=== PATIENT | female | born 1985 | race African-American/Black ===

== ENCOUNTER 2018-12-29 16:11 | Outpatient (CLI) | payer MEDICARE, MEDICAID ==
--- NOTE | 2018-12-29 17:14 | ULT ---
ULTRASOUND OB COMPLETE STANDARD 12/29/18 HISTORY: Anatomy, size and dates. COMPARISON: None. TECHNIQUE: Real time hunt scale, color doppler and spectral analysis of the gravid uterus was performed transabd ominal approach. Single viable intrauterine with average ultrasound age of 21 week, 4 day. Estimated date of delivery 05/07/19. Estimated is 1 lb, 38th percentile. BIOMETRY: Biparietal diameter 4.86 cm 20 week, 5 day Head circumference 18.91 cm 21 week, 2 day Abdominal circumference 17.52 cm 22 week, 4 day Femur length 3.53 cm 21 week, 2 day ANATOMY: Head, cerebellum, cisterna magnum, lateral ventricles, four chamber heart, stomach, kidneys, cord ins ertion, bladder, cervical, thoracic and lumbar and sacral spines as well as nose, lips, upper extremi ties, lower extremities, three vessel cord are all normal. The placenta is fundal and the posi tion is transverse wit the head to the maternal left. IMPRESSION: Single viable intrauterine with normal anatomy scan. POS: [facility]
== END 2018-12-29 16:12 | disposition home or self-care (01) ==
LOC: BICULT 16:11
PROVIDERS: ATTEND Family Medicine
DX: Z34.82 Encounter for supervision of other normal pregnancy, second trimester (principal); Z3A.21 21 weeks gestation of pregnancy
CPT/HCPCS: 76805

== ENCOUNTER 2019-03-21 17:13 | Day surgery (SDC) | payer MEDICARE, MEDICAID ==
[2019-03-21 18:09] VITALS: BMI 25.9
[2019-03-21] MEDS ORDERED: Lactated Ringer's 1,000 ML IV SCH (18:30)
--- NOTE | 2019-03-21 18:36 | PDOC.LDHP ---
Labor and Delivery H&P Chief complaint: contractions HPI: 33 y/o at 34w1d, patient of Dr. Brown, presents with cramping since the 06 of March. She has continued to experience this and decided to come in for evaluation. Denies VB, LOF, or decreased FM. ROS neg for HEENT, cv, pulm, gi, gu, neuro, psych, skin, musculoskeletal or constitutional symptoms other than mentioned above. OB History Details: 2 prior term SVDs Current complications: none Past Medical History: Asthma Depression Current medications: pre- vitamins Previous surgical history: other (breast lumpectomy (benign), bilateral bunionectomy) Allergies/Adverse Reactions: Allergies Allergy/AdvReac Type Severity Reaction Status Date / Time amoxicillin Allergy Hives Verified 03/21/19 18:00 Social history: none - Physical Exam Vital signs reviewed and normal: yes General: NAD, resting Lungs: nonlabored breathing Abdomen: gravid Extremeties: no edema FHT: category 1 (120s, mod variability, + accels, no decels) [place] contractions every: 3-5 mins - Vaginal Exam cm dilated: 0 (unchanged after 5 hours) Effacement: 0% Station: -3 - Assessment 33 y/o at 34w1d with no e/o PTL. Received IV fluids and no cervical change management manager 5 hours of observation. status reassuring with reactive NST. - Plan -: D/c home with precautions. Dr. Brown would like to see her tomorrow. Advised to increase water intake.
== END 2019-03-21 23:15 | disposition home or self-care (01) ==
LOC: L&D/OP 17:13
PROVIDERS: ATTEND Family Medicine
DX: O47.03 False labor before 37 completed weeks of gestation, third trimester (principal); O99.513 Diseases of the respiratory system complicating pregnancy, third trimester; J45.909 Unspecified asthma, uncomplicated; O99.343 Other mental disorders complicating pregnancy, third trimester; F32.9 Major depressive disorder, single episode, unspecified; Z3A.34 34 weeks gestation of pregnancy; Z88.0 Allergy status to penicillin
CPT/HCPCS: 96360; 96361; 99283

== ENCOUNTER 2019-04-27 05:30 | Inpatient (IN) | payer MEDICARE, MEDICAID ==
[2019-04-27] MEDS ORDERED: Ondansetron PF 4 MG/2 ML Vial IVP PRN ×3 (06:39→13:12)
[2019-04-27] MEDS ORDERED: NS w/ Oxytocin 10 units 500 ML IV SCH ×2 (06:39)
[2019-04-27] MEDS ORDERED: hydrALAZINE 20 MG/ML VIAL SLOW IVP PRN ×2 (06:39→13:12)
[2019-04-27] MEDS ORDERED: Carboprost 250 MCG/ML AMP IM PRN (06:39)
[2019-04-27] MEDS ORDERED: Misoprostol 200 MCG TAB PR PRN (06:39)
[2019-04-27] MEDS ORDERED: Lidocaine 1% (PF) 30 ML VIAL SC PRN (06:39)
[2019-04-27] MEDS ORDERED: Promethazine HCl 25 MG/ML VIAL IM PRN ×3 (06:39→13:12)
[2019-04-27] MEDS ORDERED: Methylergonovine 0.2 MG/ML VIAL IM PRN (06:39)
[2019-04-27] MEDS ORDERED: HYDROcodone/Acetaminophen 5/325 mg Tablet PO PRN ×3 (06:39→13:12)
[2019-04-27] MEDS ORDERED: NS / Oxytocin 40 units/1000ml 1,000 ML IV PRN (06:39)
[2019-04-27] MEDS ORDERED: Ibuprofen 800 MG TAB PO PRN (06:39)
[2019-04-27] MEDS ORDERED: Lactated Ringer's 1,000 ML IV SCH (06:39)
[2019-04-27] MEDS ORDERED: Butorphanol Tartrate 1 MG/ML VIAL SLOW IVP PRN (06:39)
[2019-04-27] MEDS ORDERED: Diphenoxylate HCl/Atropine Tablet PO PRN (06:39)
[2019-04-27 06:51] VITALS: BMI 27.4
[2019-04-27 07:36] LABS: Hemoglobin 12.8 g/dL (12.0-16.0); Mean Corpuscular Volume 94.2 fL (78.0-98.0); Mean Platelet Volume 9.2 fL (7.4-10.4); Platelet Count 127 thou/uL (130-400); RBC Distribution Width 11.8 % (11.5-14.5); Red Blood Cell (RBC) Count 4.01 mill/uL (4.20-5.40); White Blood Cell (WBC) Count 5.4 thou/uL (4.8-10.8)
[2019-04-27] MEDS ORDERED: Fentanyl 4 mcg/Bup 0.1% Cadd 100 ML ONE (08:07)
[2019-04-27 08:16] LABS: HBSAg Index 0.26 S/CO (0-0.99); Hep B Surf Ag Non-Reactive S/CO (NonReactive); Syphilis Antibody Nonreactive (Nonreactive); Syphilis Antibody Index 0.02 S/CO (<1.00 Non-Reactive)
[2019-04-27] MEDS ORDERED: Naloxone HCl 0.4 mg/ml Vial IVP PRN ×2 (08:37)
[2019-04-27] MEDS ORDERED: diphenhydrAMINE 50 MG/ML VIAL IVP PRN (08:37)
[2019-04-27] MEDS ORDERED: ePHEDrine/0.9% NaCl/PF SYRINGE 50 mg/10 ml SLOW IVP PRN (08:37)
[2019-04-27] MEDS ORDERED: Lactated Ringer's 500 ML IV PRN (08:37)
[2019-04-27] MEDS ORDERED: Acetaminophen 325 MG TAB PO PRN (08:37)
[2019-04-27] MEDS ORDERED: Fentanyl 4 mcg/Bupivacaine 0.1% Cassette 100 ML EPIDURAL SCH (08:45)
[2019-04-27] MEDS ORDERED: Communication Order-Pharmacy FS SCH (08:45)
[2019-04-27] MEDS ORDERED: Lidocaine 1% (PF) 30 ML VIAL ONE (11:34)
[2019-04-27] MEDS ORDERED: diphenhydrAMINE 25 MG CAP PO PRN (13:12)
[2019-04-27] MEDS ORDERED: Benzocaine-Menthol 82.5 ML CAN TOP PRN (13:12)
[2019-04-27] MEDS ORDERED: NS / Oxytocin 40 units/1000ml 1,000 ML IV SCH (13:12)
[2019-04-27] MEDS ORDERED: Bisacodyl 10 MG SUPP PR PRN (13:12)
[2019-04-27] MEDS ORDERED: Milk Of Magnesia 30 ML UDCUP PO PRN (13:12)
[2019-04-27] MEDS: Ferrous Sulfate 325 MG TAB PO SCH (19:29)
[2019-04-27] MEDS: Ibuprofen 800 MG TAB PO SCH ×2 (21:55→22:04)
[2019-04-27] MEDS: Docusate Calcium (SURFAK) 240 MG CAP PO SCH (21:55)
[2019-04-28] MEDS: Ibuprofen 800 MG TAB PO SCH ×2 (05:31→13:27)
[2019-04-28 06:33] LABS: Hemoglobin 12.2 g/dL (12.0-16.0); Mean Corpuscular HGB CONC 34.1 g/dL (32.0-36.0); Mean Corpuscular Hemoglobin 32.3 pg (27.0-31.0); Mean Corpuscular Volume 94.7 fL (78.0-98.0); Mean Platelet Volume 8.9 fL (7.4-10.4); Platelet Count 102 thou/uL (130-400); RBC Distribution Width 11.7 % (11.5-14.5); Red Blood Cell (RBC) Count 3.77 mill/uL (4.20-5.40); White Blood Cell (WBC) Count 7.8 thou/uL (4.8-10.8)
[2019-04-28] MEDS ORDERED: Prenatal Vitamin 1 TAB PO SCH (09:00)
[2019-04-28] MEDS: Ferrous Sulfate 325 MG TAB PO SCH (09:24)
[2019-04-28] MEDS: Docusate Calcium (SURFAK) 240 MG CAP PO SCH (09:24)
[2019-04-28 11:34] VITALS: BP 108/61; TEMP 98.2
[2019-04-28] MEDS ORDERED: Measles/Mumps/Rubella 10 MCG/0.5 ML VIAL SC ONE (15:00)
== END 2019-04-28 14:15 | disposition home or self-care (01) | DRG 807 ==
LOC: L&D 06:19 → 3SW 15:01
PROVIDERS: ADMIT Family Medicine; ATTEND Family Medicine
PROC: 10E0XZZ Delivery of Products of Conception, External Approach (ICD-10-PCS; principal; 2019-04-27)
PROC: 3E033VJ Introduction of Other Hormone into Peripheral Vein, Percutaneous Approach (ICD-10-PCS; 2019-04-27)
DX: O80 Encounter for full-term uncomplicated delivery (principal); Z37.0 Single live birth; Z3A.39 39 weeks gestation of pregnancy
CPT/HCPCS: 36415; 51702; 85027; 86780; 86850; 86900; 86901; 87340; 90707; J2001; J2590

== ENCOUNTER 2020-06-02 10:35 | Outpatient (CLI) | payer MEDICARE, MEDICAID ==
--- NOTE | 2020-06-03 07:02 | ULT ---
ULTRASOUND OBSTETRICAL COMPLETE: DATE: 06/02/2020 HISTORY: 35-year-old female ICD-10: O09.892: Supervision of other high-risk pregnancies, second trimester. "Complete anatomy, size and dates, cervical length" FINDINGS: number: calero lie: Vertex Maternal cervix: 4 cm. Closed. Placenta: Anterior. No previa. Several placental lakes. Largest is 3.2 x 1.4 x 1.9 cm. Amniotic fluid volume: FREDY = 12 cm heart rate: 147 bpm The following anatomy is visualized, with no evidence of anomalies: Head, cerebellum, lateral ventricles, four-chamber heart, stomach, kidneys, cord insertion, bladder, cervical spine, thoracic spine, lumbar spine, sacrum, nose and lips, upper extremities, lower extremities, and three-vessel cord. biometry: Biparietal diameter (BPD): 4.7 cm 20 w 1 d Head circumference (HC): 17.7 cm 20 w 2 d Abdominal circumference (AC): 14.8 cm 20 w 1 d Femur length (FL): 3.2 cm 20 w 0 d Average ultrasound age (AUA): 20 w 1 d Estimated date of delivery (ALAN): 10/19/2020 Estimated weight (EFW): 329 g +/- 38 g IMPRESSION: 1) Live 2nd trimester intrauterine gestation. 2) Estimated gestational age of 20 weeks, 1 days 3) cephalic lie. 4) no anatomic abnormality identified. 5) incidental finding of multiple placental lakes.
== END 2020-06-02 10:36 | disposition home or self-care (01) ==
LOC: BICULT 10:35
PROVIDERS: ATTEND Family Medicine
DX: O09.892 Supervision of other high risk pregnancies, second trimester (principal); Z3A.20 20 weeks gestation of pregnancy
CPT/HCPCS: 76805

== ENCOUNTER 2020-09-10 11:17 | Day surgery (SDC) | payer MEDICARE, MEDICAID ==
[2020-09-10 12:29] LABS: Bacteria/HPF None Seen HPF (None Seen); Bilirubin Negative (Negative); Blood, Urine Negative (Negative); Clarity Clear (Clear); Glucose, Urine (Dipstick) Normal (Negative); Ketone, Urine Negative (Negative); Leukocyte 25 Leu/uL (Negative); Nitrite Negative (Negative); Protein, Urine (Dipstick) Negative (Neg-Trace); RBC/HPF 0-3 HPF (0-3); Specific Gravity, Urine 1.012 (1.002-1.036); Squamous Epithelial None Seen HPF (0-3); Urobilinogen Normal mg/dL (Less than 2); WBC/HPF 0-3 HPF (0-3); pH, Urine 7.5 (5.0-9.0)
[2020-09-10] MEDS ORDERED: hydrALAZINE 20 MG/ML VIAL SLOW IVP PRN (12:32)
[2020-09-10 13:34] VITALS: BMI 27.4
--- NOTE | 2020-09-11 06:56 | PRG ---
DATE OF SERVICE: 09/10/2020 PRIMARY PERIODONTAL ASSISTANT: Meet Brown MD CHIEF COMPLAINT: Abdominal pain. HISTORY OF PRESENT ILLNESS: The patient is a 35-year-old, G4, P3, female, with an intrauterine at 35 weeks and 3 days, presenting with complaints of abdominal pains for the last 2 weeks. She is unable to determine how often they occur, but she says they happen. When they happen, they last about 2 minutes and they have gotten more unbearable in recent days. The patient does report a history of delivery, but she again is unable to report when the baby was born whether the baby required NICU support. The patient reports that she sees Dr. Brown in about a week. She denies fever, cough, headache, chest pain, shortness of breath, nausea, vomiting, diarrhea, constipation, hip problems, knee problems, or muscle weakness. She denies vaginal bleeding, leakage of fluid, or urinary urgency or frequency. PAST MEDICAL HISTORY: 1. Asthma. 2. Depression. PAST SURGICAL HISTORY: 1. She has had a breast biopsy. 2. She has had bunion removal. ALLERGIES: AMOXICILLIN, SHE REPORTS HIVES. CURRENT MEDICATIONS: 1. vitamins. 2. Albuterol p.r.n. SOCIAL HISTORY: Denies drug, alcohol, or tobacco use. OBSTETRIC LABORATORY DATA: Unavailable at the time of dictation. REVIEW OF SYSTEMS: Per HPI. PHYSICAL EXAMINATION: VITAL SIGNS: Blood pressure is 129/70, heart rate of 96, respiratory rate of 18. GENERAL: She appears to be in no acute distress. She is alert, oriented, cooperative, and pleasant to interact with. HEAD: Normocephalic and atraumatic. LUNGS: Clear to auscultation bilaterally. HEART: Regular rate and rhythm. ABDOMEN: Gravid, soft, and nontender. EXTREMITIES: Nontender and nonedematous. GENITOURINARY: Cervical exam is 1, 50 and -2 station per nursing staff. heart tracing shows the fetus with a baseline in the 130s with moderate long-term variability, positive 15 x 15 accelerations, no decelerations. Tocometer showing contractions about every 2 minutes. This does not seem to give the patient a lot of discomfort during our discussion. LABORATORY STUDIES: Urinalysis shows a pH of 7.5, specific gravity of 1.012, negative nitrites, 25 leukocyte esterase, negative white blood cells, negative squamous cells, negative bacteria. VPIII is pending. ASSESSMENT AND PLAN: The patient is a 35-year-old female with an intrauterine at 35 weeks and 3 days, showing no clear signs of labor. Cervix is still very unfavorable. Anticipate discharge home once the VPIII is back. We can discuss temporary pain control with IM morphine and Phenergan if she has a ride to home. Fetus has a category 1 tracing, reactive NST. Job ID: [id number]
== END 2020-09-10 16:00 | disposition home or self-care (01) ==
LOC: L&D/OP 11:17
PROVIDERS: ATTEND Family Medicine
DX: O99.891 Other specified diseases and conditions complicating pregnancy (principal); R10.9 Unspecified abdominal pain; O99.513 Diseases of the respiratory system complicating pregnancy, third trimester; J45.909 Unspecified asthma, uncomplicated; O23.593 Infection of other part of genital tract in pregnancy, third trimester; B96.89 Other specified bacterial agents as the cause of diseases classified elsewhere; O09.213 Supervision of pregnancy with history of pre-term labor, third trimester; Z3A.35 35 weeks gestation of pregnancy; Z88.0 Allergy status to penicillin
CPT/HCPCS: 81001; 87480; 87510; 87660

== ENCOUNTER 2020-09-14 14:33 | Day surgery (SDC) | payer MEDICARE, MEDICAID ==
[2020-09-14 15:14] VITALS: BP 115/80; TEMP 98.8; BMI 26.6
[2020-09-14] MEDS ORDERED: hydrALAZINE 20 MG/ML VIAL SLOW IVP PRN (15:16)
--- NOTE | 2020-09-14 15:34 | PDOC.FPROB ---
FMR OB H&P: HPI - History of Present Illness Chief Complaint: Pelvic pressure Indentification: 35yo at 36.0wks History of Present Illness: 35yo at 36.0wks presents for pelvic pressure. Reports coming in for similar pain on 09/11 and was prescribed an antibiotic. Per chart review pt was BV positive and likely sent home with Flagyl. She is still taking it. Pain was not worse today but reports she was just tired of having it. Pain is intermittent, worse with position changes and walking. Denies fever, chills, n/v. Endorses FM. Denies VB/discharge, LOF. Endorses back pain that is consistent with contractions on the monitor. Primary Care Physician: Dr Brown FMR OB H&P: Current - Care : 4 Para: 3 Gestational age: 36.0 Course/Complications: Denies FMR OB H&P: History - Past Medical History PMH: Asthma- last used inhaler 09/10, depression - OB History OB History: Hx of 3 SVDs - Surgical History Sx History: Bunion surgery, surgery on breast cyst - Social History Social History: Denies tobacco, alcohol, drug use - Family History Family History: Noncontributory FMR OB H&P: Medications - Current Home Medications: Medication Instructions Recorded Confirmed Type Vitamin 1 tablet PO DAILY 03/21/19 09/14/20 History ALButerol Sulfate [Ventolin Neb] 1 mg PO DAILY 09/10/20 09/14/20 History Allergies/Adverse Reactions: Allergies Allergy/AdvReac Type Severity Reaction Status Date / Time amoxicillin Allergy Hives Verified 01/29/20 00:20 FMR OB H&P: ROS - Review of Systems General: denies: fever/chills, fatigue Eyes: denies: vision changes, floaters ENT: denies: nasal congestion, rhinorrhea Respiratory: denies: cough, congestion, shortness of breath Gastrointestinal: reports: cramping. denies: nausea, vomiting, diarrhea Genitourinary (Female): reports: contractions, vaginal pressure. denies: dysuria, hematuria, vaginal discharge, vaginal bleeding Musculoskeletal: denies: pain, swelling Neurologic: denies: weakness, headache Integumentary: denies: rash, lesions FMR OB H&P: Vital Signs - Maternal Vital signs: Vital Signs - First Documented Temp Pulse Resp BP Pulse Ox 98.8 F 85 16 115/80 98 09/14/20 15:08 09/14/20 15:08 09/14/20 15:08 09/14/20 15:08 09/14/20 15:08 - Heart Tones Baseline: 130 Variability: moderate Acceleration: absent Deceleration: absent Category: category 1 [place] contractions every: 3-4min FMR OB H&P: Physical Exam - Physical Exam General: NAD, awake, alert and oriented HEENT: normocephalic and atraumatic, conjunctiva clear Neck: supple, trachea midline Heart: RRR, no murmurs/rubs/gallops, no edema General: CTAB, no respiratory distress Abdomen: soft, gravid, other (Pelvic pain reproducible with lateral displacement of uterus c/w round ligament pain. No rebound or rigidity. No CVA tenderness) Musculoskeletal: normal gait and station, pulses present, no misalignment/asymmetry Neurological: no focal deficit Skin: no rash, good tugor Psychiatric: intact recent and remote memory, good judgement and insight, normal mood and affect - Pelvic Exam Vulva: normal hair distribution, no lesions, no discharge, no blood SVE: 25/h Membranes: Intact FMR OB H&P: A/P Disposition: 35yo at 36.0wks presents for pelvic pain - UA with no signs of infection 09/11. Currently being tx'ed for BV. - CTX every 4-5min, SVE 25/h unchanged from 09/11. Will PO hydrate and recheck in 1 hr. - Pelvic pain most consistent with round ligament pain. Reproducible on exam. Afebrile no rebound or rigidity, no CVA tenderness. Discussion: Date/Time: 09/14/200 This H&P was discussed with Dr. Pierce who agrees with the above documentation and plan. Addendum - Attending - Attending Attestation Date/Time: 09/14/20 [id number] I personally evaluated the patient and discussed the management with Dr. Pierce. I agree with the History, Examination, Assessment and Plan documented above.
--- NOTE | 2020-09-14 16:37 | PDOC.EVN ---
Event Note - Event Note Event Note: Still ivon every 3-5min. Repeat SVE unchanged, 12/01/h. Will give 1L LR. Continue to monitor. Addendum - Attending - Attending Attestation Date/Time: 09/14/20 [id number] I personally evaluated the patient and discussed the management with Dr. quiros. I agree with the History, Examination, Assessment and Plan documented above.
[2020-09-14] MEDS ORDERED: Lactated Ringer's 1,000 ML IV SCH (16:45)
[2020-09-14 17:05] LABS: Bacteria/HPF None Seen HPF (None Seen); Bilirubin Negative (Negative); Blood, Urine Negative (Negative); Clarity Clear (Clear); Glucose, Urine (Dipstick) Normal (Negative); Ketone, Urine 40 mg/dL (Negative); Leukocyte Negative Leu/uL (Negative); Nitrite Negative (Negative); Protein, Urine (Dipstick) Negative (Neg-Trace); RBC/HPF 0-3 HPF (0-3); Specific Gravity, Urine 1.005 (1.002-1.036); Squamous Epithelial 0-3 HPF (0-3); Urobilinogen Normal mg/dL (Less than 2); WBC/HPF 0-3 HPF (0-3); pH, Urine 6.5 (5.0-9.0)
[2020-09-14 17:07] LABS: Urine Culture Reflex No No
--- NOTE | 2020-09-14 17:34 | PDOC.EVN ---
Event Note - Event Note Event Note: UCs spacing out with IV fluid. UA negative, ketones seen, no bacteria. SVE was unchanged at last exam. Plan: DC home with precautions, increase fluid intake at home.
[2020-09-15] MEDS ORDERED: FLU VACC QS2020-21(6MOS UP)/PF 60 MCG/0.5 ML SYRINGE IM ONE (15:30)
== END 2020-09-14 17:40 | disposition home or self-care (01) ==
LOC: L&D/OP 14:33
PROVIDERS: ATTEND Family Medicine
DX: O99.891 Other specified diseases and conditions complicating pregnancy (principal); R10.2 Pelvic and perineal pain; O23.593 Infection of other part of genital tract in pregnancy, third trimester; B96.89 Other specified bacterial agents as the cause of diseases classified elsewhere; O99.513 Diseases of the respiratory system complicating pregnancy, third trimester; J45.909 Unspecified asthma, uncomplicated; Z3A.36 36 weeks gestation of pregnancy; Z79.899 Other long term (current) drug therapy; Z88.0 Allergy status to penicillin
CPT/HCPCS: 51701; 81001; 96360; 99283

== ENCOUNTER 2020-10-05 15:16 | Day surgery (SDC) | payer MEDICARE, MEDICAID ==
[2020-10-05] MEDS ORDERED: hydrALAZINE 20 MG/ML VIAL SLOW IVP PRN (15:29)
--- NOTE | 2020-10-05 15:31 | PDOC.FPROB ---
FMR OB H&P: HPI - History of Present Illness Chief Complaint: abdominal pain/contractions Indentification: 35 yo at 38.0 wga History of Present Illness: Patient reports she has been having abdominal pain for past 10 days or so. However, she started to feel contractions today and could not rest. Called EMS who brought her here. Denies LOF, vaginal bleeding, vaginal discharge. Endorses FM. Checked in clinic and was 1.5 cm last week. Primary Care Physician: Kevin FMR OB H&P: Current - Care : 4 Para: 3003 Gestational age: 38.0 Due date: 10/19/2020 Course/Complications: None - OB Labs Blood type: O RH: positive Antibody Screen: negative HIV: negative RPR: negative HepBsAg: negative Rubella: immune Urine drug screen: negative Gonorrhea: negative Chlamydia: negative Pap Smear: NILM GBS: unknown FMR OB H&P: History - Past Medical History PMH: Asthma - OB History OB History: 3 SVDs, uncomplicated, all at 39 weeks - FUNCTIONAL DIRECTOR History FUNCTIONAL DIRECTOR History: Denies STIs, UTIs - Surgical History Sx History: Breast lumpectomy Bunion removal. - Social History Social History: Denies smoking, drinking, drugs. - Family History Family History: noncontributory FMR OB H&P: Medications - Current Home Medications: Medication Instructions Recorded Confirmed Type Vitamin 1 tablet PO DAILY 03/21/19 09/14/20 History ALButerol Sulfate [Ventolin Neb] 1 mg PO DAILY 09/10/20 09/14/20 History Allergies/Adverse Reactions: Allergies Allergy/AdvReac Type Severity Reaction Status Date / Time amoxicillin Allergy Hives Verified 01/29/20 00:20 FMR OB H&P: ROS - Review of Systems General: denies: fever/chills Eyes: denies: vision changes Cardiovascular: denies: chest pain, edema Respiratory: denies: cough, shortness of breath Gastrointestinal: reports: abdominal pain. denies: nausea, vomiting Genitourinary (Female): reports: contractions, vaginal pressure. denies: dysuria, vaginal discharge, vaginal bleeding Musculoskeletal: denies: pain Neurologic: reports: headache (yesterday, which resolved) Integumentary: denies: rash Hematologic/Lymphatic: denies: prolonged or excessive bleeding Psychological: denies: depression, anxiety FMR OB H&P: Vital Signs - Maternal Vital signs: BP 121/62 HR 90 - Heart Tones Baseline: 135 Variability: moderate Acceleration: present Deceleration: absent Category: category 1 [place] contractions every: 3-4 min FMR OB H&P: Physical Exam - Physical Exam General: NAD, awake, alert and oriented HEENT: normocephalic and atraumatic, no scleral icterus, grossly normal vision, grossly normal hearing Neck: trachea midline Heart: pulses present, no edema General: no respiratory distress, good air movement Abdomen: soft, gravid, bowel sound present Musculoskeletal: FROM in all four extremities Neurological: no focal deficit Skin: no rash, no jaundice Lymphatic: no unusual bruising or bleeding Psychiatric: intact recent and remote memory, normal mood and affect - Pelvic Exam SVE: /-2 Membranes: intact Estimated Weight: 7 lbs FMR OB H&P: A/P - Problem List (1) Uterine contractions Current Visit: Yes Status: Acute Code(s): [id number] - Disposition: observe on L&D. Recheck cervix in 1-2 hours. Discussion: Date/Time: 10/05/20 1529 35 yo at 38.0 wga Contractions - observe on L&D and recheck cervix in1-2 hours - GBS unknown, allergic to amoxicillin - 3 other vaginal deliveries induced at 39 wga This H&P was discussed with Dr. Wright, who agrees with the above documentation and plan. Signature: Jamir Isabel MD PGY2
[2020-10-05 16:09] VITALS: BMI 28.3
--- NOTE | 2020-10-06 05:58 | PRG ---
DATE OF SERVICE: 10/05/2020 TIME OF SERVICE: 1820 hours. PRESENTING COMPLAINT: Contractions at 37 weeks gestation. HISTORY OF PRESENT ILLNESS: Straughter is a 35-year-old 4, para 3, at 37 weeks, ALAN of 10/19. Blood type O positive, antibody negative. Pap negative. Rubella immune. VDRL nonreactive. Hepatitis B, GC, chlamydia negative. Group B strep unknown, who sees Meet Brown at [facility]. She complains of contractions for 2 hours. Denies leakage of fluid. Comes in via ambulance. She reports an active fetus. [employer] MEDIC HISTORY: x3, uncomplicated pregnancies. PAST MEDICAL HISTORY: Significant for asthma. PAST SURGICAL HISTORY: Breast biopsy and bunions. ALLERGIES: DENIES. MEDICATIONS: vitamins. SOCIAL HISTORY: Denies tobacco, alcohol, or IV drug abuse. FAMILY HISTORY: Noncontributory. REVIEW OF SYSTEMS: Noncontributory. PHYSICAL EXAMINATION: GENERAL: Black female, in no acute distress. VITAL SIGNS: Blood pressure 118/72, pulse 85, respirations 18, temperature 98.2. HEENT: Within normal limits. LUNGS: Clear to auscultation bilaterally. HEART: Regular rate and rhythm. ABDOMEN: Soft. Occasional palpable contractions at fundal height 37. FHTs 140s. Vulva without lesions. Vagina, without discharge. Cervix 2, 50, -2, cephalic. [place] via RN exam. The patient was monitored for greater than 1.5 hours. She had occasional contractions every 4 to 7 minutes that were indentable. Category 1 heart rate tracing. Recheck of her cervix after approximately 2 hours was unchanged. IMPRESSION: 37 to 38 weeks gestation with [place] contractions, no evidence of active labor. PLAN: Discharge home. Keep scheduled followup in two days with Dr. Meet Brown at [facility]. ER precautions. Job ID: [id number]
== END 2020-10-05 18:53 | disposition home health service (06) ==
LOC: L&D/OP 15:16
DX: O47.1 False labor at or after 37 completed weeks of gestation (principal); O99.613 Diseases of the digestive system complicating pregnancy, third trimester; J45.909 Unspecified asthma, uncomplicated; Z3A.38 38 weeks gestation of pregnancy; Z88.0 Allergy status to penicillin
CPT/HCPCS: 99283

== ENCOUNTER 2020-10-08 20:25 | Day surgery (SDC) | payer MEDICARE, MEDICAID ==
[2020-10-08 20:55] VITALS: BP 118/64; TEMP 98.7; BMI 27.8
[2020-10-08] MEDS ORDERED: hydrALAZINE 20 MG/ML VIAL SLOW IVP PRN (21:55)
--- NOTE | 2020-10-08 22:18 | PRG ---
DATE OF SERVICE: PRIMARY OB: Dr. Meet Brown. CHIEF COMPLAINT: Vaginal discharge. HISTORY OF PRESENT ILLNESS: The patient is a 35-year-old G4, P3 female, with an intrauterine at 38 weeks and 3 days presenting to Labor and Delivery because of having a mucousy discharge today that she had not seen before. The patient yesterday was seen by Dr. Brown in the office at which time her membranes were swept. She was noted to be 3 cm dilated at that time. The patient had experienced quite a few painful contractions to the day yesterday, but today they have dissipated away. After counseling the family and friends about her mucousy discharge, she came to Labor and Delivery for evaluation. The patient denies fever, cough, headache, chest pain, shortness of breath, nausea, vomiting, diarrhea, constipation, hip problems, knee problems, muscle weakness. She denies any new rashes. She denies vaginal bleeding. She denies urinary urgency or frequency. PAST MEDICAL HISTORY: Asthma, depression. PAST SURGICAL HISTORY: She had bunionectomy and breast lump removal. ALLERGIES: NO KNOWN DRUG ALLERGIES. MEDICATIONS: 1. vitamins. 2. Albuterol. OB LABS: Blood type is O positive. Antibody screen is negative. RPR is nonreactive in the 1st and 3rd trimester. HIV is nonreactive in the 1st and 3rd trimester. Hepatitis B surface antigen is negative. She is rubella immune. GC and Chlamydia are negative. One-hour Glucola is 135. REVIEW OF SYSTEMS: Per HPI. PHYSICAL EXAMINATION: VITAL SIGNS: Blood pressure is 118/64, heart rate of 92, saturating 99% on room air, respiratory rate of 18. GENERAL: She appears to be in no acute distress. She is alert, oriented, cooperative, and pleasant to interact with. HEAD: Normocephalic, atraumatic. LUNGS: Clear to auscultation bilaterally. HEART: Regular rate and rhythm. ABDOMEN: Gravid. Soft, nontender. EXTREMITIES: Nontender, nonedematous. Cervical exam per nursing staff is 3, 50, and -2 station, unchanged from reported exam yesterday. heart tracing shows the fetus with a baseline in the 140s with moderate long-term variability, positive 15 x 15 accelerations, no decelerations. Tocometer showing irritability, not all felt by the patient. ASSESSMENT AND PLAN: The patient is a 35-year-old G4, P3 female, with an intrauterine at 38 weeks and 3 days with a loss of mucus vaginally. The patient has no evidence of labor at this time. No rupture of membranes or other concerns. Fetus has a category 1 tracing and reactive NST. She has an appointment next Tuesday with Dr. Brown that we have encouraged that she keep. Job ID: [id number]
== END 2020-10-08 21:57 | disposition home or self-care (01) ==
LOC: L&D/OP 20:25
PROVIDERS: ATTEND Family Medicine
DX: O99.891 Other specified diseases and conditions complicating pregnancy (principal); N89.8 Other specified noninflammatory disorders of vagina; O99.513 Diseases of the respiratory system complicating pregnancy, third trimester; J45.909 Unspecified asthma, uncomplicated; Z3A.38 38 weeks gestation of pregnancy
CPT/HCPCS: 99282

== ENCOUNTER 2020-10-10 15:39 | Day surgery (SDC) | payer MEDICARE, MEDICAID ==
[2020-10-10 16:41] VITALS: BP 115/69; TEMP 98.8; BMI 27.4
[2020-10-10] MEDS ORDERED: hydrALAZINE 20 MG/ML VIAL SLOW IVP PRN (16:49)
--- NOTE | 2020-10-10 16:54 | PDOC.BPN ---
- Brief Progress Note H&P Dictated Labor OBD at 38 weeks 5 days 4cm on arrival
--- NOTE | 2020-10-10 17:21 | HP ---
TIME OF EVALUATION: Roughly 1640 hours, is now about 1652 hours. LOCATION: Labor and Delivery Triage. Patient of Dr. Brown. CHIEF COMPLAINT: Possible contractions as she was sent from Dr. Brown's office for evaluation of labor. HISTORY OF PRESENT ILLNESS: In brief, this is a 35-year-old, G4, P3, with an EDC of 10/19/2020 putting her at 38 weeks and 5 days with complaint of contractions. Now, she states that she was seen earlier in Dr. Brown's office, who checked her and found her to be about 4 cm, so she was sent for labor observation. In Labor and Delivery here, she has also been checked and she has 4 cm. It is important to note that she was checked in Labor and Delivery about 2 days ago and she was about 3 cm then, and after labor observation, was found to be in labor and was sent home without any issues. She denies leakage of fluid, ruptured membranes. She denies vaginal bleeding and she has good movement. She denies any concerns at this time. REVIEW OF SYSTEMS: Complete review of systems was checked and is otherwise negative unless specified in the HPI. GENERAL: She is in no acute distress, and denies fever, chills, or shortness of breath. RESPIRATORY: No shortness of breath or chest pain. ABDOMEN: No symptoms associated here. GI: No constipation or diarrhea. : No dysuria or frequency. OB: The patient has good movement. PAST OB HISTORY: She has had three prior vaginal births. PAST SURGICAL HISTORY: She has had a bunion surgery in her foot and a previous left lumpectomy on the breast. ALLERGIES: AMOXICILLIN. SOCIAL HISTORY: Negative per the patient. PHYSICAL EXAMINATION: GENERAL: She is in no acute distress and does not appear to be actively laboring. VITAL SIGNS: Checked and they are stable. Blood pressure is 115/69, temperature is 98.8, pulse is 78, saturation is 100%. ABDOMEN: Soft, nontender, and gravid. CERVICAL/PELVIC: Reveals a cervix that is 4 cm dilated, 50% effaced, -2 station and that is by Nenita, who is the nurse, who did the first exam assessment. EXTREMITIES: Lower extremities are without significant edema or abnormalities. On monitors, heart tones are reactive in the 130s to 140s or so. There is great variability and no pathological decelerations. Contraction is about every 3 minutes on tocodynamometer. ASSESSMENT: This is a 35-year-old G4, P3, patient of Dr. Brown, who is at early term at 38 weeks and 5 days, here for latent phase of labor at about 4 cm dilation, which is what she was in the office earlier. She is here for labor observation. PLAN: 1. No acute abnormalities noted. 2. We will watch the patient for at least 2 hours because she is ivon, but she has not made significant change from her previous exam two days ago when she was about 3 to 4 cm then. 3. If there is progress of labor, then we will admit her to Dr. Brown. 4. If she remains about 3 to 4 cm as long as pain is not an issue, we may send her home and she is not quite yet full term at 39 weeks. 5. No acute issues at this time. Job ID: [id number]
--- NOTE | 2020-10-10 18:51 | PDOC.BPN ---
- Brief Progress Note L&D recheck and disposition: I am at bedside. s. Still with some CTX. No LOF. O. Vitals stable. RX exam by ziyad was same at /-2. BOWI, no VB monitors: reactive at 140s, TOCO with CTX every 3 min or so Assessment and plan: As she is and lives in [facility], we will OBS here overnight as she is having regular CTX. I will not give pitocin yet as under 39 weeks and no medical indication at this time. DX: latent labor at 38 weeks, lives remote from [facility]. I have seen her and reviewed POC. I called Dr Brown and addressed POC with him as well. Overnight obs regular diet Dr Brown to reeval in AM
[2020-10-10] MEDS ORDERED: Butorphanol Tartrate 1 MG/ML VIAL IM PRN (18:52)
--- NOTE | 2020-10-11 07:51 | PDOC.BPN ---
- Brief Progress Note OBGYN Follow up: Patient stable last night...rested. She will have a check this AM and final dispo per Dr. Brown.
[2020-10-11] MEDS ORDERED: FLU VACC QS2020-21(6MOS UP)/PF 60 MCG/0.5 ML SYRINGE IM ONE (09:00)
== END 2020-10-11 10:43 | disposition home health service (06) ==
LOC: L&D/OP 15:39
PROVIDERS: ATTEND Family Medicine
DX: O47.1 False labor at or after 37 completed weeks of gestation (principal); Z3A.38 38 weeks gestation of pregnancy; Z88.1 Allergy status to other antibiotic agents

== ENCOUNTER 2020-10-13 09:07 | Inpatient (IN) | payer MEDICARE, MEDICAID ==
[2020-10-13 09:54] VITALS: BMI 28.6
[2020-10-13] MEDS: Lactated Ringer's 1,000 ML IV SCH ×2 (10:14→12:04)
[2020-10-13] MEDS ORDERED: Ibuprofen 800 MG TAB PO PRN (10:33)
[2020-10-13] MEDS ORDERED: HYDROcodone/Acetaminophen 5/325 mg Tablet PO PRN ×3 (10:33→18:01)
[2020-10-13] MEDS ORDERED: Ondansetron PF 4 MG/2 ML Vial IVP PRN ×2 (10:33→18:01)
[2020-10-13] MEDS ORDERED: NS / Oxytocin 40 units/1000ml 1,000 ML IV PRN (10:33)
[2020-10-13] MEDS ORDERED: Promethazine HCl 25 MG/ML VIAL IM PRN ×2 (10:33→18:01)
[2020-10-13] MEDS ORDERED: Misoprostol 200 MCG TAB PR PRN (10:33)
[2020-10-13] MEDS ORDERED: Carboprost 250 MCG/ML AMP IM PRN (10:33)
[2020-10-13] MEDS ORDERED: Lidocaine 1% (PF) 30 ML VIAL SC PRN (10:33)
[2020-10-13] MEDS ORDERED: Methylergonovine 0.2 MG/ML VIAL IM PRN (10:33)
[2020-10-13] MEDS ORDERED: hydrALAZINE 20 MG/ML VIAL SLOW IVP PRN ×2 (10:33→18:01)
[2020-10-13] MEDS ORDERED: Diphenoxylate HCl/Atropine Tablet PO PRN (10:33)
[2020-10-13] MEDS ORDERED: Butorphanol Tartrate 1 MG/ML VIAL SLOW IVP PRN (10:33)
[2020-10-13] MEDS ORDERED: NS w/ Oxytocin 10 units 500 ML IV SCH ×2 (10:45)
[2020-10-13 10:54] LABS: Hemoglobin 12.5 g/dL (12.0-16.0); Mean Corpuscular HGB CONC 34.5 g/dL (32.0-36.0); Mean Corpuscular Hemoglobin 32.3 pg (27.0-31.0); Mean Corpuscular Volume 93.6 fL (78.0-98.0); Mean Platelet Volume 9.3 fL (7.4-10.4); Platelet Count 144 thou/uL (130-400); RBC Distribution Width 11.9 % (11.5-14.5); Red Blood Cell (RBC) Count 3.88 mill/uL (4.20-5.40); White Blood Cell (WBC) Count 6.3 thou/uL (4.8-10.8)
[2020-10-13] MEDS ORDERED: Lidocaine 2% MPF 10 ML AMP (For Epidural Use) ONE (11:32)
[2020-10-13] MEDS ORDERED: Bupivacaine/Epinephrine 0.25% 30 ML VIAL ONE (11:32)
[2020-10-13 11:33] LABS: HBSAg Index 0.15 S/CO (0-0.99); Hep B Surf Ag Non-Reactive S/CO (NonReactive)
[2020-10-13 12:13] LABS: Syphilis Antibody Nonreactive (Nonreactive); Syphilis Antibody Index 0.03 S/CO (<1.00 Non-Reactive)
[2020-10-13] MEDS ORDERED: DISCONTINUE ALL PREVIOUS NARCOTICS FS SCH (13:00)
[2020-10-13] MEDS ORDERED: Bupivacaine 0.5% 20 ML, fentaNYL Citrate/PF 400 MCG in Sodium Chloride 0.9% 72 ML EPIDURAL SCH (13:00)
[2020-10-13] MEDS ORDERED: Fentanyl 100 MCG/2 ML VIAL ONE (13:47)
[2020-10-13] MEDS ORDERED: Bupivacaine 0.5% 10 ML VIAL ONE (13:47)
[2020-10-13] MEDS ORDERED: Lidocaine 1% (PF) 30 ML VIAL ONE (15:50)
[2020-10-13] MEDS ORDERED: diphenhydrAMINE 25 MG CAP PO PRN (18:01)
[2020-10-13] MEDS ORDERED: Milk Of Magnesia 30 ML UDCUP PO PRN (18:01)
[2020-10-13] MEDS ORDERED: Bisacodyl 10 MG SUPP PR PRN (18:01)
[2020-10-13] MEDS ORDERED: NS / Oxytocin 40 units/1000ml 1,000 ML IV SCH (18:01)
[2020-10-13 18:04] LABS: SARS-CoV-2 MS2 Positive; SARS-CoV-2 N Gene Negative; SARS-CoV-2 S Gene Negative; SARS-CoV-2 by NAA Not Detected (NotDetected); SARS-CoV-2 orf1ab Negative
[2020-10-13] MEDS ORDERED: Benzocaine-Menthol 82.5 ML CAN TOP PRN (23:46)
[2020-10-14] MEDS: Ibuprofen 800 MG TAB PO SCH ×3 (00:51→15:36)
[2020-10-14] MEDS: Docusate Calcium (SURFAK) 240 MG CAP PO SCH ×2 (00:52→07:47)
[2020-10-14] MEDS: Ferrous Sulfate 325 MG TAB PO SCH ×2 (08:11→16:19)
[2020-10-14] MEDS ORDERED: Adacel (T-DAP) 0.5 ML SYRINGE IM ONE (09:00)
[2020-10-14] MEDS ORDERED: Prenatal Vitamin 1 TAB PO SCH (09:00)
[2020-10-14 11:37] VITALS: TEMP 98.4
[2020-10-14 15:43] VITALS: BP 117/59
== END 2020-10-14 18:45 | disposition home or self-care (01) | DRG 807 ==
LOC: L&D 09:07 → 3SW 19:57
PROVIDERS: ADMIT Family Medicine; ATTEND Family Medicine
PROC: 10E0XZZ Delivery of Products of Conception, External Approach (ICD-10-PCS; principal; 2020-10-13)
PROC: 0HQ9XZZ Repair Perineum Skin, External Approach (ICD-10-PCS; 2020-10-13)
DX: O70.0 First degree perineal laceration during delivery (principal); Z37.0 Single live birth; Z3A.39 39 weeks gestation of pregnancy; Z20.828 Contact with and (suspected) exposure to other viral communicable diseases
CPT/HCPCS: 36415; 85027; 86780; 86850; 86900; 86901; 87340; 87635; J2001; J2590; J3010; J3490; U0003

== ENCOUNTER 2021-04-12 19:21 | Emergency (ER) | payer MEDICARE, OTHER ==
[2021-04-12 20:13] LABS: #Basophils 0.1 thou/uL (0.0-0.2); #Lymphocytes 0.9 thou/uL (1.20-3.40); #Monocytes 0.3 thou/uL (0.11-0.59); #Neutrophils 3.1 thou/uL (1.40-6.50); %Basophils 1.5 % (0.0-1.0); %Eosinophils 0.1 % (0.0-10.0); %Lymphocytes 21.5 % (21.0-51.0); %Monocytes 7.2 % (0.0-10.0); %Neutrophils 69.7 % (42.0-75.0); Hemoglobin 13.2 g/dL (12.0-16.0); Mean Corpuscular HGB CONC 35.6 g/dL (32.0-36.0); Mean Corpuscular Hemoglobin 31.9 pg (27.0-31.0); Mean Corpuscular Volume 89.5 fL (78.0-98.0); Mean Platelet Volume 7.7 fL (7.4-10.4); Platelet Count 168 thou/uL (130-400); RBC Distribution Width 11.6 % (11.5-14.5); Red Blood Cell (RBC) Count 4.13 mill/uL (4.20-5.40); White Blood Cell (WBC) Count 4.4 thou/uL (4.8-10.8)
[2021-04-12 20:32] LABS: ALT (SGPT) 19 U/L (8-55); AST (SGOT) 24 U/L (5-34); Albumin 3.6 g/dL (3.5-5.0); Alkaline Phosphatase 42 U/L (40-110); Anion Gap 15 mmol/L (10-20); BUN (Urea Nitrogen) 7 mg/dL (7.0-18.7); Bilirubin, Total 0.3 mg/dL (0.2-1.2); Calc. Creatinine Clearance 0 mL/min (70-130); Calcium 7.8 mg/dL (7.8-10.44); Carbon Dioxide 19 mmol/L (22-29); Chloride 105 mmol/L (98-107); Globulin 2.9 g/dL (2.4-3.5); Glucose 86 mg/dL (70-105); Potassium 3.4 mmol/L (3.5-5.1); Protein, Total 6.5 g/dL (6.0-8.3); Sodium 136 mmol/L (136-145)
[2021-04-12] MEDS ORDERED: Dexamethasone 10 MG/ML VIAL ONE (21:10)
== END 2021-04-12 22:17 | disposition home or self-care (01) ==
LOC: ERS 19:21
DX: J45.901 Unspecified asthma with (acute) exacerbation (principal); Z86.16 Personal history of COVID-19
CPT/HCPCS: 36415; 71045; 80053; 85025; 87804; 93005; 96374; J1100; J7620; U0003; U0005

== ENCOUNTER 2021-04-14 08:35 | Emergency (ER) | payer MEDICARE, OTHER ==
[2021-04-14] MEDS ORDERED: Iopamidol-370 76% 500 ML 1 ML ONE (08:55)
[2021-04-14 09:49] LABS: #Monocytes 0.2 thou/uL (0.11-0.59); #Neutrophils 4.4 thou/uL (1.40-6.50); %Basophils 0.4 % (0.0-1.0); %Lymphocytes 17.7 % (21.0-51.0); %Monocytes 3.7 % (0.0-10.0); %Neutrophils 78.2 % (42.0-75.0); Hemoglobin 13.5 g/dL (12.0-16.0); Mean Corpuscular HGB CONC 35.4 g/dL (32.0-36.0); Mean Corpuscular Hemoglobin 31.2 pg (27.0-31.0); Mean Platelet Volume 8.1 fL (7.4-10.4); Platelet Count 183 thou/uL (130-400); RBC Distribution Width 11.5 % (11.5-14.5); Red Blood Cell (RBC) Count 4.32 mill/uL (4.20-5.40); White Blood Cell (WBC) Count 5.6 thou/uL (4.8-10.8)
[2021-04-14 10:02] LABS: ALT (SGPT) 40 U/L (8-55); AST (SGOT) 54 U/L (5-34); Albumin 3.5 g/dL (3.5-5.0); Alkaline Phosphatase 38 U/L (40-110); Anion Gap 14 mmol/L (10-20); BUN (Urea Nitrogen) 8 mg/dL (7.0-18.7); Bilirubin, Total 0.3 mg/dL (0.2-1.2); CK (CPK) 174 U/L (29-168); Calc. Creatinine Clearance 0 mL/min (70-130); Calcium 7.8 mg/dL (7.8-10.44); Carbon Dioxide 19 mmol/L (22-29); Chloride 107 mmol/L (98-107); Globulin 2.9 g/dL (2.4-3.5); Glucose 110 mg/dL (70-105); Potassium 3.2 mmol/L (3.5-5.1); Protein, Total 6.4 g/dL (6.0-8.3); Sodium 137 mmol/L (136-145)
[2021-04-14 11:14] LABS: Pregnancy Test - Urine (BHCG) Negative (Negative); Pregu Control Background? CLEAR/WHITE (CLR/WHITE); Pregu Control Bar Appear? YES (CONTROL BAR); Specific Gravity 1.016 (1.002-1.036)
[2021-04-14 11:31] LABS: SARS-CoV-2 NAA Rapid Test DETECTED (NotDetected)
[2021-04-14] MEDS ORDERED: Albuterol 200 PUFF (6.7GM INHALER) ONE (14:07)
== END 2021-04-14 14:54 | disposition home or self-care (01) ==
LOC: ERS 08:35
DX: U07.1 COVID-19 (principal); J45.901 Unspecified asthma with (acute) exacerbation; Z79.899 Other long term (current) drug therapy
CPT/HCPCS: 0240U; 71045; 71275; 80053; 81025; 82550; 83605; 84484; 85025; 85379; 93005; 94640; 99285; 36415; J7620; Q9967

== ENCOUNTER 2021-04-16 09:23 | Inpatient (IN) | payer MEDICARE, MEDICAID ==
[2021-04-16] MEDS ORDERED: Magnesium 2 GM/50 ML BAG (IN WATER) ONE (10:51)
[2021-04-16] MEDS ORDERED: Aspirin Chewable 81 MG TAB ONE (10:51)
[2021-04-16] MEDS ORDERED: Albuterol 200 PUFF (6.7GM INHALER) ONE (10:51)
[2021-04-16 11:08] LABS: #Lymphocytes 0.7 thou/uL (1.20-3.40); #Monocytes 0.2 thou/uL (0.11-0.59); %Basophils 0.3 % (0.0-1.0); %Lymphocytes 8.1 % (21.0-51.0); %Monocytes 2.6 % (0.0-10.0); Mean Corpuscular HGB CONC 34.2 g/dL (32.0-36.0); Mean Corpuscular Hemoglobin 30.4 pg (27.0-31.0); Mean Corpuscular Volume 88.8 fL (78.0-98.0); Mean Platelet Volume 7.9 fL (7.4-10.4); Platelet Count 193 thou/uL (130-400); RBC Distribution Width 11.7 % (11.5-14.5); Red Blood Cell (RBC) Count 4.61 mill/uL (4.20-5.40); White Blood Cell (WBC) Count 8.9 thou/uL (4.8-10.8)
[2021-04-16 11:43] LABS: ALT (SGPT) 41 U/L (8-55); AST (SGOT) 39 U/L (5-34); Albumin 3.7 g/dL (3.5-5.0); Alkaline Phosphatase 37 U/L (40-110); Anion Gap 15 mmol/L (10-20); BUN (Urea Nitrogen) 7 mg/dL (7.0-18.7); Bilirubin, Total 0.5 mg/dL (0.2-1.2); Calc. Creatinine Clearance 0 mL/min (70-130); Calcium 8.5 mg/dL (7.8-10.44); Carbon Dioxide 18 mmol/L (22-29); Chloride 104 mmol/L (98-107); Globulin 3.5 g/dL (2.4-3.5); Glucose 144 mg/dL (70-105); Lipase 38 U/L (8-78); Protein, Total 7.2 g/dL (6.0-8.3); Sodium 134 mmol/L (136-145)
[2021-04-16 12:03] LABS: BHCG - Serum Negative (NEGATIVE); Pregs Control Background? CLEAR/WHITE (CLR/WHITE); Pregs Control Bar Appear? YES (CONTROL BAR)
[2021-04-16 12:20] LABS: Potassium 2.9 mmol/L (3.5-5.1)
[2021-04-16] MEDS ORDERED: Potassium Chloride 20 MEQ TAB ONE (12:56)
[2021-04-16] MEDS ORDERED: Electrolyte Replacement Protocol 1 EACH FS SCH (13:15)
[2021-04-16] MEDS ORDERED: cefTRIAXone\\ROCEPHIN 2 GM VIAL ONE (13:28)
[2021-04-16] MEDS ORDERED: Electrolyte Replacement Protocol FS PRN (13:30)
[2021-04-16] MEDS ORDERED: Acetaminophen 650 MG Suppository PR PRN (13:52)
[2021-04-16] MEDS ORDERED: Loperamide HCl 2 MG CAP PO PRN ×2 (14:00)
[2021-04-16] MEDS ORDERED: Azithromycin 500 MG VIAL ONE (14:06)
[2021-04-16 14:08] LABS: Bilirubin Negative (Negative); Blood, Urine Trace (Negative); Glucose, Urine (Dipstick) Negative (Negative); Ketone, Urine > or equal to 80 mg/dL (Negative); Leukocyte Negative (Negative); Nitrite Negative (Negative); Protein, Urine (Dipstick) 30 mg/dL (Neg-Trace)
[2021-04-16] MEDS ORDERED: Albuterol 200 PUFF (6.7GM INHALER) INH PRN (14:08)
[2021-04-16 14:14] LABS: Clarity Clear (Clear)
[2021-04-16 14:17] LABS: Bacteria/HPF None Seen HPF (None Seen); RBC/HPF 0-3 HPF (0-3); Squamous Epithelial 0-3 HPF (0-3); WBC/HPF 0-3 HPF (0-3)
[2021-04-16] MEDS ORDERED: Ondansetron PF 4 MG/2 ML Vial ONE (14:25)
[2021-04-16 14:27] LABS: Troponin I Less than 0.010 ng/mL (< 0.028)
[2021-04-16 16:21] VITALS: BMI 26.3
[2021-04-16 19:06] LABS: Anion Gap 16 mmol/L (10-20); BUN (Urea Nitrogen) 7 mg/dL (7.0-18.7); Calc. Creatinine Clearance 124 mL/min (70-130); Calcium 8.3 mg/dL (7.8-10.44); Carbon Dioxide 19 mmol/L (22-29); Chloride 105 mmol/L (98-107); Glucose 173 mg/dL (70-105); Potassium 3.7 mmol/L (3.5-5.1); Sodium 136 mmol/L (136-145)
[2021-04-16 19:10] LABS: Troponin I Less than 0.010 ng/mL (< 0.028)
[2021-04-16] MEDS: Guaifenesin DM 100-10/5 ML UDCUP PO PRN (20:46)
[2021-04-17] MEDS: Guaifenesin DM 100-10/5 ML UDCUP PO PRN ×3 (03:19→20:55)
[2021-04-17] MEDS: Acetaminophen 325 MG TAB PO PRN ×2 (04:21→13:32)
[2021-04-17 06:23] LABS: Anion Gap 14 mmol/L (10-20); BUN (Urea Nitrogen) 8 mg/dL (7.0-18.7); Calc. Creatinine Clearance 135 mL/min (70-130); Calcium 8.6 mg/dL (7.8-10.44); Carbon Dioxide 21 mmol/L (22-29); Chloride 106 mmol/L (98-107); Glucose 119 mg/dL (70-105); Sodium 137 mmol/L (136-145)
[2021-04-17 06:34] LABS: Band 10 % (5-11); Hemoglobin 13.1 g/dL (12.0-16.0); Lymphocytes 6 % (21-51); MDiff Complete? YES; Mean Corpuscular Hemoglobin 28.3 pg (27.0-31.0); Mean Corpuscular Volume 88.5 fL (78.0-98.0); Mean Platelet Volume 8.2 fL (7.4-10.4); Monocytes 7 % (0-10); Neutrophil 76 % (42-75); Platelet Count 231 thou/uL (130-400); Platelet Morphology Comment Appears Adequate; RBC Distribution Width 11.8 % (11.5-14.5); RBC Morphology Normal; Reactive Lymphocytes 1 % (0-10); Red Blood Cell (RBC) Count 4.63 mill/uL (4.20-5.40); White Blood Cell (WBC) Count 12.6 thou/uL (4.8-10.8)
[2021-04-17] MEDS: Dexamethasone 4 MG TAB PO SCH (08:31)
[2021-04-17] MEDS: Zinc Sulfate 220 MG CAP PO SCH (08:32)
[2021-04-17] MEDS: Ascorbic Acid 500 mg Chewable Tablet PO SCH (08:32)
[2021-04-17] MEDS: Enoxaparin Sodium 40 MG/0.4 ML SYRINGE SC SCH (08:32)
[2021-04-17] MEDS: Albuterol 200 PUFF (6.7GM INHALER) INH SCH ×2 (17:44→22:34)
[2021-04-18] MEDS: Albuterol 200 PUFF (6.7GM INHALER) INH SCH ×6 (01:41→22:27)
[2021-04-18 06:52] LABS: Anion Gap 14 mmol/L (10-20); BUN (Urea Nitrogen) 9 mg/dL (7.0-18.7); CRP (Inflammatory) 8.81 mg/dL (= or < 0.5); Calc. Creatinine Clearance 137 mL/min (70-130); Calcium 8.9 mg/dL (7.8-10.44); Carbon Dioxide 22 mmol/L (22-29); Chloride 105 mmol/L (98-107); Glucose 96 mg/dL (70-105); Potassium 3.8 mmol/L (3.5-5.1); Sodium 137 mmol/L (136-145)
[2021-04-18] MEDS: Dexamethasone 4 MG TAB PO SCH (09:11)
[2021-04-18] MEDS: Zinc Sulfate 220 MG CAP PO SCH (09:11)
[2021-04-18] MEDS: Enoxaparin Sodium 40 MG/0.4 ML SYRINGE SC SCH ×2 (09:11→21:31)
[2021-04-18] MEDS: Ascorbic Acid 500 mg Chewable Tablet PO SCH (09:11)
[2021-04-18] MEDS: Acetaminophen 325 MG TAB PO PRN (12:09)
[2021-04-18] MEDS: Guaifenesin DM 100-10/5 ML UDCUP PO PRN ×2 (12:10→19:29)
[2021-04-18] MEDS ORDERED: REMDESIVIR 200 MG in Sodium Chloride 0.9% 250 ML 210 ML IV SCH (19:00)
[2021-04-19] MEDS: Acetaminophen 325 MG TAB PO PRN (00:32)
[2021-04-19] MEDS: Albuterol 200 PUFF (6.7GM INHALER) INH SCH ×6 (02:09→22:30)
[2021-04-19] MEDS: Guaifenesin DM 100-10/5 ML UDCUP PO PRN (04:02)
[2021-04-19 06:15] LABS: ALT (SGPT) 39 U/L (8-55); AST (SGOT) 22 U/L (5-34); Albumin 3.5 g/dL (3.5-5.0); Alkaline Phosphatase 36 U/L (40-110); Anion Gap 13 mmol/L (10-20); BUN (Urea Nitrogen) 10 mg/dL (7.0-18.7); Bilirubin, Direct 0.2 mg/dL (0.1-0.3); Bilirubin, Total 0.4 mg/dL (0.2-1.2); Calc. Creatinine Clearance 127 mL/min (70-130); Calcium 8.8 mg/dL (7.8-10.44); Carbon Dioxide 24 mmol/L (22-29); Glucose 99 mg/dL (70-105); Protein, Total 6.9 g/dL (6.0-8.3)
[2021-04-19 06:28] LABS: Chloride 103 mmol/L (98-107); Potassium 3.6 mmol/L (3.5-5.1); Sodium 136 mmol/L (136-145)
[2021-04-19] MEDS: Enoxaparin Sodium 40 MG/0.4 ML SYRINGE SC SCH ×2 (09:20→20:35)
[2021-04-19] MEDS: Dexamethasone 4 MG TAB PO SCH (09:20)
[2021-04-19] MEDS: Ascorbic Acid 500 mg Chewable Tablet PO SCH (09:20)
[2021-04-19] MEDS: Zinc Sulfate 220 MG CAP PO SCH (09:20)
[2021-04-19] MEDS: Aspirin 81 mg Enteric Coated Tablet PO SCH (09:20)
[2021-04-19] MEDS: REMDESIVIR 100 MG in Sodium Chloride 0.9% 250 ML 230 ML IV SCH (17:32)
[2021-04-20] MEDS: Albuterol 200 PUFF (6.7GM INHALER) INH SCH ×6 (02:45→18:59)
[2021-04-20] MEDS: Ascorbic Acid 500 mg Chewable Tablet PO SCH (08:28)
[2021-04-20] MEDS: Aspirin 81 mg Enteric Coated Tablet PO SCH (08:28)
[2021-04-20] MEDS: Enoxaparin Sodium 40 MG/0.4 ML SYRINGE SC SCH ×2 (08:28→18:59)
[2021-04-20] MEDS: Zinc Sulfate 220 MG CAP PO SCH (08:28)
[2021-04-20] MEDS: Dexamethasone 4 MG TAB PO SCH (08:28)
[2021-04-20] MEDS: REMDESIVIR 100 MG in Sodium Chloride 0.9% 250 ML 230 ML IV SCH (18:59)
[2021-04-21] MEDS: Albuterol 200 PUFF (6.7GM INHALER) INH SCH ×6 (04:16→23:00)
[2021-04-21 06:59] LABS: ALT (SGPT) 82 U/L (8-55); AST (SGOT) 44 U/L (5-34); Albumin 3.4 g/dL (3.5-5.0); Alkaline Phosphatase 38 U/L (40-110); Anion Gap 13 mmol/L (10-20); BUN (Urea Nitrogen) 9 mg/dL (7.0-18.7); Bilirubin, Direct 0.2 mg/dL (0.1-0.3); Bilirubin, Total 0.4 mg/dL (0.2-1.2); Calc. Creatinine Clearance 137 mL/min (70-130); Calcium 8.7 mg/dL (7.8-10.44); Carbon Dioxide 24 mmol/L (22-29); Chloride 104 mmol/L (98-107); Glucose 83 mg/dL (70-105); Protein, Total 6.6 g/dL (6.0-8.3); Sodium 137 mmol/L (136-145)
[2021-04-21] MEDS: Dexamethasone 4 MG TAB PO SCH (09:10)
[2021-04-21] MEDS: Aspirin 81 mg Enteric Coated Tablet PO SCH (09:11)
[2021-04-21] MEDS: Ascorbic Acid 500 mg Chewable Tablet PO SCH (09:11)
[2021-04-21] MEDS: Enoxaparin Sodium 40 MG/0.4 ML SYRINGE SC SCH ×2 (09:11→19:44)
[2021-04-21] MEDS: Zinc Sulfate 220 MG CAP PO SCH (09:11)
[2021-04-21] MEDS ORDERED: REMDESIVIR 100 MG in Sodium Chloride 0.9% 250 ML 230 ML IV SCH (18:00)
[2021-04-22] MEDS: Albuterol 200 PUFF (6.7GM INHALER) INH SCH ×4 (00:57→19:12)
[2021-04-22] MEDS: Dexamethasone 4 MG TAB PO SCH (09:10)
[2021-04-22] MEDS: Aspirin 81 mg Enteric Coated Tablet PO SCH (09:10)
[2021-04-22] MEDS: Ascorbic Acid 500 mg Chewable Tablet PO SCH (09:10)
[2021-04-22] MEDS: Zinc Sulfate 220 MG CAP PO SCH (09:12)
[2021-04-22] MEDS: Enoxaparin Sodium 40 MG/0.4 ML SYRINGE SC SCH (09:12)
[2021-04-22] MEDS ORDERED: REMDESIVIR 100 MG in Sodium Chloride 0.9% 250 ML 230 ML IV SCH (14:00)
[2021-04-22 19:11] VITALS: BP 111/73; TEMP 98.8
== END 2021-04-22 17:33 | disposition home or self-care (01) | DRG 177 ==
LOC: ERS 09:23 → OBSVTOIN 13:29 → T4-B 13:29
PROVIDERS: ADMIT Internal Medicine; ATTEND Internal Medicine
PROC: 8E0ZXY6 Isolation (ICD-10-PCS; 2021-04-16)
PROC: XW033E5 Introduction of Remdesivir Anti-infective into Peripheral Vein, Percutaneous Approach, New Technology Group 5 (ICD-10-PCS; principal; 2021-04-18)
DX: U07.1 COVID-19 (principal); J12.82 Pneumonia due to coronavirus disease 2019; J96.01 Acute respiratory failure with hypoxia; J45.21 Mild intermittent asthma with (acute) exacerbation; E87.1 Hypo-osmolality and hyponatremia; E87.6 Hypokalemia; F32.9 Major depressive disorder, single episode, unspecified; Z88.1 Allergy status to other antibiotic agents; Z98.890 Other specified postprocedural states; Z79.52 Long term (current) use of systemic steroids; Z80.9 Family history of malignant neoplasm, unspecified; Z82.49 Family history of ischemic heart disease and other diseases of the circulatory system
CPT/HCPCS: 36415; 36416; 71045; 80048; 80053; 80076; 81003; 81015; 82728; 83605; 83690; 83735; 83880; 84484; 84703; 85025; 85379; 86140; 93005; 96365; 96366; 96367; 96372; 96375; G0378; J0456; J0696; J1650; J2405; J3475; J7050; J8540

== ENCOUNTER 2021-08-25 20:07 | Emergency (ER) | payer MEDICARE, OTHER ==
[2021-08-25 20:49] LABS: #Basophils 0.1 thou/uL (0.0-0.2); #Eosinphils 0.2 thou/uL (0.0-0.7); #Lymphocytes 2.9 thou/uL (1.20-3.40); #Monocytes 0.5 thou/uL (0.11-0.59); #Neutrophils 3.6 thou/uL (1.40-6.50); %Basophils 1.3 % (0.0-1.0); %Eosinophils 2.6 % (0.0-10.0); %Lymphocytes 39.4 % (21.0-51.0); %Monocytes 7.2 % (0.0-10.0); %Neutrophils 49.5 % (42.0-75.0); Hemoglobin 13.3 g/dL (12.0-16.0); Mean Corpuscular HGB CONC 34.6 g/dL (32.0-36.0); Mean Corpuscular Hemoglobin 30.4 pg (27.0-31.0); Mean Corpuscular Volume 87.7 fL (78.0-98.0); Mean Platelet Volume 7.8 fL (7.4-10.4); Platelet Count 254 thou/uL (130-400); RBC Distribution Width 11.2 % (11.5-14.5); Red Blood Cell (RBC) Count 4.38 mill/uL (4.20-5.40); White Blood Cell (WBC) Count 7.3 thou/uL (4.8-10.8)
[2021-08-25 21:11] LABS: ALT (SGPT) 15 U/L (8-55); AST (SGOT) 17 U/L (5-34); Albumin 4.1 g/dL (3.5-5.0); Alkaline Phosphatase 73 U/L (40-110); Anion Gap 13 mmol/L (10-20); BUN (Urea Nitrogen) 9 mg/dL (7.0-18.7); Bilirubin, Total Less than 0.2 mg/dL (0.2-1.2); Calc. Creatinine Clearance 0 mL/min (70-130); Calcium 9.4 mg/dL (7.8-10.44); Carbon Dioxide 26 mmol/L (22-29); Chloride 105 mmol/L (98-107); Globulin 2.7 g/dL (2.4-3.5); Glucose 91 mg/dL (70-105); Potassium 3.9 mmol/L (3.5-5.1); Protein, Total 6.8 g/dL (6.0-8.3); Sodium 140 mmol/L (136-145)
== END 2021-08-25 21:31 | disposition home or self-care (01) ==
LOC: ERS 20:07
DX: R07.89 Other chest pain (principal); J45.909 Unspecified asthma, uncomplicated
CPT/HCPCS: 36415; 71045; 80053; 83880; 84484; 85025; 93005

== ENCOUNTER 2021-12-03 12:52 | Emergency (ER) | payer MEDICAID, MEDICARE, OTHER ==
[2021-12-03 20:53] LABS: SARS-CoV-2 PCR by NAA Not Detected (NotDetected)
== END 2021-12-03 15:15 | disposition home or self-care (01) ==
LOC: ERS 12:52
DX: R09.81 Nasal congestion (principal); Z20.822 Contact with and (suspected) exposure to COVID-19
CPT/HCPCS: 99283; U0003; U0005

== ENCOUNTER 2024-03-31 09:53 | Emergency (ER) | payer OTHER ==
[2024-03-31 10:34] LABS: #Basophils Less than 0.03 10x3/uL (0.0-0.2); %Basophils 0.3 % (0.0-1.0); %Eosinophils 3.3 % (0.0-10.0); %Lymphocytes 30.3 % (21.0-51.0); %Monocytes 7.1 % (0.0-10.0); %Neutrophils 58.8 % (42.0-75.0); Hematocrit 39.3 % (36.0-47.0); Hemoglobin 13.4 g/dL (12.0-16.0); Mean Corpuscular HGB CONC 34.1 g/dL (32.0-36.0); Mean Corpuscular Hemoglobin 29.6 pg (27.0-31.0); Mean Corpuscular Volume 86.8 fL (78.0-98.0); Mean Platelet Volume 10.2 fL (7.4-10.4); Platelet Count 262 10x3/uL (130-400); RBC Distribution Width 13.3 % (11.5-14.5); Red Blood Cell (RBC) Count 4.53 mill/uL (4.20-5.40)
[2024-03-31 10:39] LABS: BHCG - Serum Negative (NEGATIVE); Pregs Control Background? CLEAR/WHITE (CLR/WHITE); Pregs Control Bar Appear? YES (CONTROL BAR)
[2024-03-31 10:49] LABS: ALT (SGPT) 12 U/L (8-55); AST (SGOT) 15 U/L (5-34); Albumin 3.2 g/dL (3.5-5.0); Alkaline Phosphatase 41 U/L (40-110); Anion Gap 14 mmol/L (10-20); BUN (Urea Nitrogen) 10 mg/dL (7.0-18.7); Bilirubin, Total 0.3 mg/dL (0.2-1.2); Calc. Creatinine Clearance 0 mL/min (70-130); Calcium 8.8 mg/dL (7.8-10.44); Carbon Dioxide 21 mmol/L (22-29); Chloride 108 mmol/L (98-107); Estimated GFR 101; Globulin 3.5 g/dL (2.4-3.5); Glucose 93 mg/dL (70-105); Magnesium 1.8 mg/dL (1.6-2.6); Potassium 3.9 mmol/L (3.5-5.1); Protein, Total 6.7 g/dL (6.0-8.3); Sodium 139 mmol/L (136-145)
[2024-03-31 10:52] LABS: Troponin I 0.014 ng/mL (< 0.028)
[2024-03-31] MEDS ORDERED: predniSONE 20 MG TAB ONE ×2 (12:58→13:01)
== END 2024-03-31 13:03 | disposition home or self-care (01) ==
LOC: ERS 09:53
DX: J45.909 Unspecified asthma, uncomplicated (principal); F17.210 Nicotine dependence, cigarettes, uncomplicated
CPT/HCPCS: 36415; 71045; 71275; 80053; 83735; 84484; 84703; 85025; 93005; J7512

== ENCOUNTER 2024-10-14 17:08 | Emergency (ER) | payer OTHER ==
[2024-10-14] MEDS ORDERED: Ondansetron ODT 4 MG TAB ONE (19:19)
[2024-10-14] MEDS ORDERED: predniSONE 20 MG TAB ONE (19:19)
[2024-10-14] MEDS ORDERED: Ibuprofen 200 MG TAB ONE (19:22)
[2024-10-14] MEDS ORDERED: Ipratropium/Albuterol 3 ML NEB ONE (19:41)
== END 2024-10-14 20:39 | disposition home or self-care (01) ==
LOC: ERS 17:08
DX: J10.1 Influenza due to other identified influenza virus with other respiratory manifestations (principal); F17.210 Nicotine dependence, cigarettes, uncomplicated
CPT/HCPCS: 71045; 87428; Q0162; J7512; J7620